=== PATIENT | male | born 2000 | race Caucasian/White ===

== ENCOUNTER 2024-09-15 21:03 | Emergency (ER) | payer OTHER, SELFPAY ==
[2024-09-15] VITALS (13 sets, daily range): BP systolic 113–142; BP diastolic 61–88; PULSE 92–107; TEMP 37.1–37.3; O2SAT 95–100; BMI 25.8
--- NOTE | 2024-09-15 21:18 | ED_ITS ---
HPI HPI - General Adult General Chief complaint: Nausea/Vomiting/Diarrhea Stated complaint: Nausea/Vomiting/Diarrhea Time Seen by Provider: 09/15/24 21:09 Source: patient Mode of arrival: ambulance Limitations: no limitations History of Present Illness HPI narrative: Patient states in the last 3 hours he has vomited 15 times and has had 10 loose stools. He had food from [employer] at noon today. He denies chills or fever. He complains of thirst. Related Data Previous Rx's ?Medication ?Instructions ?Recorded ondansetron 4 mg disintegrating 4 mg PO Q6H #10 tabs 09/15/24 tablet Allergies Allergy/AdvReac Type Severity Reaction Status Date / Time No Known Drug Allergies Allergy Verified 09/15/24 21:05 Opioid HPI Opioid Management Most Recent Opioid Data: No Data to Display Review of Systems ROS Status of ROS 10 or more systems reviewed and unremark able except as noted in h istory and below PFSH PFSH Social History Little interest or pleasure in doing things: not at all Feeling down, depressed, or hopeless: not at all Exam Narrative Exam Narrative: Ill-appearing. Eyes are sunken. Vitals are as charted. HEENT exam is normal to inspection. Neck is supple. Lung sounds are clear to auscultation bilaterally. Heart has regular rate and rhythm. Abdomen soft and he tolerates deep palpation in all quadrants without much discomfort. Bowel sounds are hypoactive and there is no distention or organomegaly. Extremities are warm and dry. There is no calf tenderness or pedal edema. Speech and mentation are clear and intact. There is no facial asymmetry. He moves all extremities actively Constitutional Vital Signs, click to edit/add: Last Vital Signs Temp 99.1 F 09/15/24 22:08 Pulse 97 H 09/15/24 23:31 Resp 19 09/15/24 23:31 BP 113/61 09/15/24 23:31 Pulse Ox 95 09/15/24 23:31 O2 Del Method Room Air 09/15/24 21:07 Course Vital Signs Vital signs: Vital Signs Temperature 98.7 F 09/15/24 21:07 Pulse Rate 107 H 09/15/24 21:07 Respiratory Rate 18 09/15/24 21:07 Blood Pressure 142/84 H 09/15/24 21:07 Pulse Oximetry 97 09/15/24 21:07 Oxygen Delivery Method Room Air 09/15/24 21:07 Temperature 99.1 F 09/15/24 22:08 Pulse Rate 97 H 09/15/24 23:31 Respiratory Rate 19 09/15/24 23:31 Blood Pressure 113/61 09/15/24 23:31 Pulse Oximetry 95 09/15/24 23:31 Oxygen Delivery Method Room Air 09/15/24 21:07 Medical Decision Making MDM Narrative Medical decision making narrative: Labs are fairly unremarkable. Patient is treated with 2 L of IV fluids as well as Benadryl 25 mg IV. He has had a few episodes of diarrhea but no vomiting. Upon discharge he is placed on Zofran and is advised supportive care. He is to return anytime for worsening symptoms. Symptoms are likely due to a viral gastroenteritis with no evidence of acute abdomen on exam or by lab work. Lab Data Labs: Lab Results 09/15/24 09/15/24 Range/Units 21:25 21:46 WBC 15.7 H (4.0-11.0) 10^3/uL RBC 5.24 (4.70-6.10) 10^6/uL Hgb 16.0 (14.0-18.0) g/dL Hct 45.6 (42.0-54.0) % MCV 87.0 (80.0-94.0) fL MCH 30.5 (25.9-34.0) pg MCHC 35.1 (29.9-35.2) g/dL RDW 11.2 (11.0-15.0) % Plt Count 225 (150-450) 10^3/uL MPV 11.1 (9.5-13.5) fL Seg Neuts % (Manual) 89.0 H (43.0-75.0) Band Neutrophils % 1.0 (0-5) % Lymphocytes % (Manual) 0.0 L (20.5-60.0) % Monocytes % (Manual) 5.0 (1.7-12.0) % Eosinophils % (Manual) 2.0 (0.9-7.0) % Basophils % (Manual) 0.0 L (0.2-2.0) % Neutrophils # (Manual) 13.97 H (1.4-6.5) 10^3/uL Band Neutrophils # 0.2 (0.0-0.3) 10^3/uL Lymphocytes # (Manual) 0.00 L (1.20-3.80) 10^3/uL Monocytes # (Manual) 0.78 (0.30-0.80) 10^3/uL Eosinophils # (Manual) 0.31 (0.00-0.70) 10^3/uL Basophils # (Manual) 0.00 (0.00-0.10) 10^3/uL Sodium 143 (136-145) mmol/L Potassium 3.3 L (3.5-5.1) mmol/L Chloride 104 (98-107) mmol/L Carbon Dioxide 27.9 (21.0-32.0) mmol/L Anion Gap 14.4 BUN 14.0 (7.0-18.0) mg/dL Creatinine 1.41 H (0.70-1.30) mg/dL Est GFR ( Amer) >60 (>=60 mL/min/1.73m^2) Est GFR (Non-Af Amer) >60 (>=60 mL/min/1.73m^2) BUN/Creatinine Ratio 9.9 Glucose 129 H (74-106) mg/dL Calcium 9.2 (8.5-10.1) mg/dL Total Bilirubin 0.9 (0.2-1.0) mg/dL AST 19 (15-37) U/L ALT 43 (16-63) U/L Alkaline Phosphatase 71 (46-116) U/L Total Protein 7.8 (6.4-8.2) g/dL Albumin 4.3 (3.4-5.0) g/dL Globulin 3.5 g/dL Albumin/Globulin Ratio 1.2 Lipase 23.0 (16.0-77.0) U/L Urine Color Yellow (YELLOW) Urine Clarity Clear (CLEAR) Urine pH 7.0 (5.0-9.0) Ur Specific [place] 1.025 (1.005-1.025) Urine Protein 30 A (NEG/TRACE) mg/dL Urine Glucose (UA) Negative (NEGATIVE) mg/dL Urine Ketones 15 A (NEGATIVE) mg/dL Urine Occult Blood Negative (NEGATIVE) Urine Nitrite Negative (NEGATIVE) Urine Bilirubin Negative (NEGATIVE) Urine Urobilinogen 0.2 (0.2-1.0) EU/dL Ur Leukocyte Esterase Negative (NEGATIVE) Urine RBC 0-2 (0-2) #/HPF Urine WBC 0-2 A (NONE SEEN) #/HPF Ur Squamous Epith Cells Rare (NONE/RARE) #/LPF Urine Crystals None seen (None Seen) #/HPF Urine Bacteria Small A (NONE SEEN) #/HPF Urine Casts None seen (NONE SEEN) #/LPF Urine Mucus Small A (NONE SEEN) Ur Culture Indicated? Yes Discharge Plan Discharge Chief Complaint: Nausea/Vomiting/Diarrhea Clinical Impression: Gastroenteritis Patient Disposition: Home, Self-Care Time of Disposition Decision: 23:35 Condition: Fair Mode of Transportation: Private Vehicle Prescriptions / Home Meds: New ondansetron 4 mg tablet,disintegrating 4 mg PO Q6H Qty: 10 0RF Print Language: Argentine Instructions: Acute Nausea and Vomiting (ED), Acute Diarrhea (ED) Additional Instructions: Liquid diet for 24 hours. If you have more than 5 stools in a day, you may take one Imodium tablet up to twice a day. Return for worsening symptoms. Referrals: Physician,Non-Staff, MD [Primary Care Provider] - 1 week
[2024-09-15] MEDS: 0.9 % SODIUM CHLORIDE 1,000 ML 1000 ML IV (21:31)
[2024-09-15] MEDS: DIPHENHYDRAMINE HCL 50 MG/ML VIAL 25 MG IV (21:32)
[2024-09-15 21:38] LABS: Hematocrit 45.6 % (42.0-54.0); Mean Corpuscular HGB Conc 35.1 g/dL (29.9-35.2); Mean Corpuscular Hemoglobin 30.5 pg (25.9-34.0); Mean Platelet Volume 11.1 fL (9.5-13.5); Platelet Count 225 10^3/uL (150-450); Red Blood Count 5.24 10^6/uL (4.70-6.10); Red Cell Distribution Width 11.2 % (11.0-15.0); White Blood Count 15.7 10^3/uL (4.0-11.0)
[2024-09-15 21:58] LABS: Alanine Aminotransferase 43 U/L (16-63); Albumin Globulin Ratio 1.2; Albumin Level 4.3 g/dL (3.4-5.0); Alkaline Phosphatase 71 U/L (46-116); Anion Gap 14.4; Aspartate Amino Transferase 19 U/L (15-37); BUN Creatinine Ratio 9.9; Bilirubin Total 0.9 mg/dL (0.2-1.0); Calcium 9.2 mg/dL (8.5-10.1); Carbon Dioxide 27.9 mmol/L (21.0-32.0); Chloride 104 mmol/L (98-107); Estimated GFR (African America >60 (>=60 mL/min/1.73m^2); Estimated GFR (Non-African Ame >60 (>=60 mL/min/1.73m^2); Globulin 3.5 g/dL; Glucose 129 mg/dL (74-106); Potassium 3.3 mmol/L (3.5-5.1); Sodium 143 mmol/L (136-145); Total Protein 7.8 g/dL (6.4-8.2)
--- NOTE | 2024-09-15 22:11 | PC.NURSE ---
i walked into this patient's room to find the patient lying on his right side on the bed, resting his eyes,, i introduced myself to this patient and i would be taking over his care. this patient voices no concerns and shows no signs of distress
[2024-09-15 22:12] LABS: Band Neutrophils Absolute 0.2 10^3/uL (0.0-0.3); Eosinophils Absolute Manual 0.31 10^3/uL (0.00-0.70); Monocytes Absolute Manual 0.78 10^3/uL (0.30-0.80); Segmented Neut Absolute Manual 13.97 10^3/uL (1.4-6.5)
[2024-09-15 22:16] LABS: Bilirubin Urine NEGATIVE (NEGATIVE); Blood Urine NEGATIVE (NEGATIVE); Clarity Urine CLEAR (CLEAR); Color Urine YELLOW (YELLOW); Glucose Urine UA NEGATIVE (NEGATIVE); Ketones Urine 15 mg/dL (NEGATIVE); Leukocyte Esterase Urine NEGATIVE (NEGATIVE); Nitrite Urine NEGATIVE (NEGATIVE); Protein Urine 30 mg/dL (NEG/TRACE); Specific Gravity Urine 1.025 (1.005-1.025); Urobilinogen Urine 0.2 EU/dL (0.2-1.0)
[2024-09-15 22:18] LABS: Urine Microscopic Indicated YES
[2024-09-15 22:23] LABS: Bacteria Urine SMALL #/HPF (NONE SEEN); Cast Seen? NONE SEEN #/LPF (NONE SEEN); Crystals Seen? None Seen #/HPF (None Seen); Mucus Urine SMALL (NONE SEEN); RBC Urine 0-2 #/HPF (0-2); Squamous Epithelial Cell Urine RARE #/LPF (NONE/RARE); Urine Culture Indicated YES; WBC Urine 0-2 #/HPF (NONE SEEN)
[2024-09-15] MEDS: LACTATED RINGER'S SOLUTION 1,000 ML 1000 ML IV (22:59)
--- NOTE | 2024-09-16 00:12 | PC.NURSE ---
i gave this patient verbal and paper discharge orders along with 1 e-scripts and this patient and his voices yes to understanding these. at time of discharge this patient nor his voices no concerns and show no signs of distress
== END 2024-09-16 00:14 | disposition home or self-care (01) ==
PROVIDERS: Emergency Provider Emergency Medicine
DX: K52.9 Noninfective gastroenteritis and colitis, unspecified (principal)
CPT/HCPCS: 36415; 80053; 81001; 83690; 85007; 85027; 87086; 96361; 96374; 99284; J1200

== ENCOUNTER 2025-06-09 10:44 | Emergency (ER) | payer OTHER, SELFPAY ==
[2025-06-09] VITALS (12 sets, daily range): BP systolic 131–152; BP diastolic 82–100; PULSE 48–69; TEMP 36.7; O2SAT 98–99; BMI 27.4
--- OUTSIDE RECORDS SUMMARY | 2025-06-09 10:53 | XMS_ITS | Clinical Summary ---
Author Organization [facility] Address [address] [place] [address] Phone Care Team Providers Care Inspector Shells Name Role Phone Unavailable Primary Care Provider Unavailabl e Allergies No known active allergies Social History Tobacco Use Types Packs/Day Years Used Date Smoking Tobacco: Never Assessed Sex and Gender Information Value Date Recorded Sex Assigned at Not on file Legal Sex Male 2:19 PM EDT Gender Identity Not on file Sexual Orientation Not on file Plan of Treatment Health Maintenance Due Date Last Done Comments HIV Screening 1998 Lipid Panel 1998 Yearly Adult Physical 1998 MMR Vaccines (1 of 1 - Stand mehreen series) 1999 HPV Vaccines (1 - Male 3-dos e series) 2013 Hepatitis C Screening 2016 Hepatitis B Vaccines (1 of 3 - 19+ 3-dose series) 2017 DTaP/Tdap/Td Vaccines (1 - Tdap) 2020 COVID-19 Vaccine (1 - 2023-2 5 season) 2025 Influenza Vaccine (#1) 2025 Zoster Vaccines (1 of 2) 2048 HIB Vaccines Aged Out No longer eligi ble based on patient's age to complete this topic Hepatitis A Vaccines Aged Out No long er eligible based on patient's age to complete this topic IPV Vaccines Aged Out No longer eligi ble based on patient's age to complete this topic Meningococcal Vaccine Aged Out No tyrone suraj eligible based on patient's age to complete this topic Pneumococcal Vaccine: Pediat rics and At-Risk Adult Patients Aged Out No longer kalia gible based on patient's age to complete this topic Rotavirus Vaccines Aged Out No longer eligible based on patient's age to complete this topic Insurance [facility] Member Subscriber Plan / Payer (Ef fective 2022-Present) Name:Ulysses Zhang Relation to Subscriber:Self Name:Ulysses Zhang Payer ID:Not on file Group ID:Not on file Type:Not on file Address: [id number] GABRIELLE [id number] [id number] [facility]
--- OUTSIDE RECORDS SUMMARY | 2025-06-09 10:53 | XMS_ITS | Encounter Summary ---
Author Organization [facility] Address [address] [place] [address] Care Team Providers Care Dealer Accounts Investigator Name Role Phone Star Antoine MD Primary Care Provider [phone] Pcp, No Primary Care Provider Unavailabl e Source Comments In the event this information is protected by the Federal Confidentiality of Alcohol and Drug AbusePatient Records regulations: The Federal rules restrict any use of the information to criminally investigate or prosecute any alcohol or drug abuse patient.[facility] Encounter Details Date Type Department Care Team (Late st Contact Info) Description 07/10/2008 Abstract Neurology [address] [id number] Mikal Tran MD [address] [address] [address] [place] [address] Social History Tobacco Use Types Packs/Day Years Used Date Smoking Tobacco: Passive Smo ke Exposure - Never Smoker Comments:mom and dad smoke Alcohol Use Standard Drinks/Week Comments No 0 (1 standard drink = 0.6 oz pur e alcohol) Sex and Gender Information Value Date Recorded Sex Assigned at Not on file Legal Sex Male 9:55 AM EST Gender Identity Not on file Sexual Orientation Not on file documented as of this encounter Plan of Treatment Not on file documented as of this encounter Visit Diagnoses Not on filedocumented in this encounter Care Teams Dealer Accounts Investigator Relationship Specialty Start Date End Date Star Antoine MD [address] [place] [address] PCP - General 10/19/04 03/07/18 Pcp, Frances PCP - General 03/08/18 09/26/18 documented as of this encounter
--- OUTSIDE RECORDS SUMMARY | 2025-06-09 10:53 | XMS_ITS | Encounter Summary ---
Author Organization [facility] Address [address] [place] [address] Phone Care Team Providers Care Micro Computer Specialist Name Role Phone Unavailable Primary Care Provider Unavailabl e Encounter Details Date Type Department Care Team (Late st Contact Info) Description 05/30/2023 Transcribe Orders [facility] [address] [place] [address] David Paz MD [address] [place], [place] [id number] Autonomic dysfunction (Primary Dx) Social History Tobacco Use Types Packs/Day Years Used Date Smoking Tobacco: Never Assessed Sex and Gender Information Value Date Recorded Sex Assigned at Not on file Legal Sex Male 2:19 PM EDT Gender Identity Not on file Sexual Orientation Not on file documented as of this encounter Plan of Treatment Not on file documented as of this encounter Visit Diagnoses Diagnosis Autonomic dysfunction- Primary documented in this encounter
--- OUTSIDE RECORDS SUMMARY | 2025-06-09 10:54 | XMS_ITS | CCD ---
Author Organization [facility] Care Team Providers Care Ivory Polisher Name Role Phone Rosana Westfall Attending Provider Kayley TRANSMISSION TESTER-CRosana Referring Provider [phone] Rosana Zaldivar NP Attending Unavailable Rosana Zaldivar NP Referring Unavailable Sourav Batista Primary Care Unavailable Emilie Hanley APRN Attending Provider NON STAFF Primary Care Provider Unavailabl e Medications Current Medications Medication Drug Class(es) Dates Sig (Normalized) Sig (Original) albuterol 0.83 mg/ml inhalation solution (1 source) beta2-Adrenergic Agonist Start: 03-08-2025 take 2.5 mg by inhalation every four to six hours as needed for wheezing Albuterol Sulfate 2.5 mg /3 mL (0.083 %) solution for nebulization Active 2.5 MG INHALATION EVERY 4-6 HOURS as needed for shortness of breath or wheezing 75 March 08, 2025 12:00am Complies with drug therapy benzonatate 100 mg oral capsule (1 source) Non-narcotic Antitussive Start: 03-08-2025 Benzonatate 100 mg capsule Active 100 MG PO 2-3 TIMES PER DAY as needed for cough 14 7 March 08, 2025 12:00am Complies with drug therapy Inhalational Spacing Device (Aerochamber Mv) spacer (1 source) Start: 03-08-2025 Inhalational Spacing Device (Aerochamber Mv) spacer Active 0 .ROUTE .MEDSUPPLY 1 March 08, 2025 12:00am As directed lisinopril 5 mg oral tablet (1 source) Angiotensin Converting Enzyme Inhibitor Start: 03-08-2025 take 1 tablet by mouth once daily Lisinopril 5 mg tablet Active 5 MG PO Daily March 08, 2025 12:00am Complies with drug therapy Problems Problem Classification Problem Date Documented Da te Episodic/Chronic Essential hypertension (1 source) Hypertensive disorder; Translations: [Essential (primary) hypertension] 03-08-2025 Chronic Other lower respiratory disease (1 source) Cough; Translations: [Cough] 03-08-2025 Episodic Results Test Name Value Interpretation Reference Range Facility [facility] 12-12-2022 [facility] Telephone (AKED) MARIAHULYSSES Sanchez ([id number]) 2000 M Date Time Provider Department 12/12/22 ATIYA VALERIO During your visit today, we recorded the following information about you: Atiya Valerio RPh 12/12/2022 10:33 AM Signed PHARMACY EMERGENCY DEPARTMENT CULTURE CALLBACK Patient Name: Ulysses Zhang Date of Callback: 12/12/2022 Pharmacist contacted this patient per emergency department culture callback guidelines. Patient was confirmed with 2 ID's N/A ALLERGIES No Known Allergies Type of Culture(s): Stool Culture Results: Positive: sapovirus Change in treatment needed:No Action Taken: Patient educated on diagnosis and counseled on treatment plan. Clostridium difficile education provided? N/A Lab Results: n/a Home Medication List: Prior to Admission medications as of 09/29/11 0910 Medication Sig Last Dose Taking dexmethylphenidate (FOCALIN XR) 30 mg ORAL MP50 Take 1 capsule by mouth once daily. Dexmethylphenidate HCl 10 mg ORAL tablet Take 1 tablet by mouth once daily. quetiapine (SEROQUEL) 100 mg ORAL tablet Take 100 mg by mouth once daily. FLINTSTONES MULTIVITAMIN ORAL CHEW 1 po daily Patient's Preferred Pharmacy: [facility] [address] [place] [address] [facility] [phone] Please page/call with any issues or questions. Electronic signature: Atiya Valerio RPh December 12, 2022 10:31 AM Pager/Extension: [phone] Allergies As of Date: 12/12/2022 (No Known Allergies) Date Reviewed: 12/11/2022 Reviewed by: Vivian Navarro RN - Fully Assessed Reason for Visit: Results [95] Prescriptions as of 12/12/2022 - dexmethylphenidate (FOCALIN XR) 30 mg ORAL MP50 Take 1 capsule by mouth once daily. - Dexmethylphenidate HCl 10 mg ORAL tablet Take 1 tablet by mouth once daily. - quetiapine (SEROQUEL) 100 mg ORAL tablet Take 100 mg by mouth once daily. 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 Encounter Status:Closed by ATIYA VALERIO on 12/12/22 Normal [facility] CBC W Auto Differential pane l (Bld)on 12-11-2022 Basophils (Bld) [#/Vol] 0.04 10*3/uL Normal <0.11 [facility] Comment on above: Order Comment: Speci men Type: BLOOD SPECIMEN Ordering Facility: [facility] Address: [address] [place] [address] Performed By: #### 5 7021-8 #### [facility] CLIA [id number] [address] [place] [address] [place] Basophils/100 WBC (Bld) 0.6 % Normal [facility] Comment on above: Order Comment: Speci men Type: BLOOD SPECIMEN Ordering Facility: [facility] Address: [address] [address] Performed By: #### 5 7021-8 #### [facility] CLIA [id number] [address] [place] Differential cell count method Nom (Bld) Auto Normal [facility] Comment on above: Order Comment: Speci men Type: BLOOD SPECIMEN Ordering Facility: [facility] Address: [address] [address] Performed By: #### 5 7021-8 #### [facility] CLIA [id number] [address] OF [facility] Eosinophils (Bld) [#/Vol] 0.15 10*3/uL Normal <0.46 [facility] Comment on above: Order Comment: Speci men Type: BLOOD SPECIMEN Ordering Facility: [facility] Address: [address] [address] Performed By: #### 5 7021-8 #### [facility] CLIA [id number] [address] OF [place] Eosinophils/100 WBC (Bld) 2.3 % Normal [facility] Comment on above: Order Comment: Speci men Type: BLOOD SPECIMEN Ordering Facility: [facility] Address: [address] [place] [address] Performed By: #### 5 7021-8 #### [facility] CLIA [id number] [address] Erythrocyte distribution width (RBC) [Ratio] 11.6 % Normal 11.5-15.0 [facility] Comment on above: Order Comment: Speci men Type: BLOOD SPECIMEN Ordering Facility: [facility] Address: [address] [place] [address] Performed By: #### 5 7021-8 #### [facility] CLIA [id number] [address] Hematocrit (Bld) [Volume fraction] 41.5 % Normal 39.0-51.0 [facility] Comment on above: Order Comment: Speci men Type: BLOOD SPECIMEN Ordering Facility: [facility] Address: [address] [address] Performed By: #### 5 7021-8 #### [facility] CLIA [id number] [address] OF [place] Hemoglobin (Bld) [Mass/Vol] 14.3 g/dL Normal 13.0-17.0 [facility] Comment on above: Order Comment: Speci men Type: BLOOD SPECIMEN Ordering Facility: [facility] Address: [address] [address] Performed By: #### 5 7021-8 #### [facility] CLIA [id number] [address] Immature granulocytes (Bld) [#/Vol] 0.05 10*3/uL Normal <0.10 [facility] Comment on above: Order Comment: Speci men Type: BLOOD SPECIMEN Ordering Facility: [facility] Address: [address] [place] [address] Performed By: #### 5 7021-8 #### [facility] CLIA [id number] [address] Immature granulocytes/100 WBC (Bld) 0.8 % Normal [facility] Comment on above: Order Comment: Speci men Type: BLOOD SPECIMEN Ordering Facility: [facility] Address: [address] [place] [address] Performed By: #### 5 7021-8 #### [facility] CLIA [id number] [address] Lymphocytes (Bld) [#/Vol] 1.88 10*3/uL Normal 1.00-4.00 [facility] Comment on above: Order Comment: Speci men Type: BLOOD SPECIMEN Ordering Facility: [facility] Address: [address] [place] [address] Performed By: #### 5 7021-8 #### [facility] CLIA [id number] [address] Lymphocytes/100 WBC (Bld) 28.9 % Normal [facility] Comment on above: Order Comment: Speci men Type: BLOOD SPECIMEN Ordering Facility: [facility] Address: [address] [place] [address] Performed By: #### 5 7021-8 #### [facility] CLIA [id number] [address] OF [place] MCH (RBC) [Entitic mass] 30.8 pg Normal 26.0-34.0 [facility] Comment on above: Order Comment: Speci men Type: BLOOD SPECIMEN Ordering Facility: [facility] Address: [address] [address] Performed By: #### 5 7021-8 #### [facility] CLIA [id number] [address] MCHC (RBC) [Mass/Vol] 34.5 g/dL Normal 30.5-36.0 [facility] Comment on above: Order Comment: Speci men Type: BLOOD SPECIMEN Ordering Facility: [facility] Address: [address] [place] [address] Performed By: #### 5 7021-8 #### [facility] CLIA [id number] [address] MCV (RBC) [Entitic vol] 89.2 fL Normal 80.0-100.0 [facility] Comment on above: Order Comment: Speci men Type: BLOOD SPECIMEN Ordering Facility: [facility] Address: [address] [place] [address] Performed By: #### 5 7021-8 #### [facility] CLIA [id number] [address] Monocytes (Bld) [#/Vol] 0.46 10*3/uL Normal <0.87 [facility] Comment on above: Order Comment: Speci men Type: BLOOD SPECIMEN Ordering Facility: [facility] Address: [address] [address] Performed By: #### 5 7021-8 #### [facility] CLIA [id number] [address] Monocytes/100 WBC (Bld) 7.1 % Normal [facility] Comment on above: Order Comment: Speci men Type: BLOOD SPECIMEN Ordering Facility: [facility] Address: [address] [place] [address] Performed By: #### 5 7021-8 #### [facility] CLIA [id number] [address] OF [place] Neutrophils (Bld) [#/Vol] 3.92 10*3/uL Normal 1.45-7.50 [facility] Comment on above: Order Comment: Speci men Type: BLOOD SPECIMEN Ordering Facility: [facility] Address: [address] [place] [address] Performed By: #### 5 7021-8 #### [facility] CLIA [id number] [address] Neutrophils/100 WBC (Bld) 60.3 % Normal [facility] Comment on above: Order Comment: Speci men Type: BLOOD SPECIMEN Ordering Facility: [facility] Address: [address] [address] Performed By: #### 5 7021-8 #### [facility] CLIA [id number] [address] [place] Nucleated RBC (Bld) [#/Vol] 10*3/uL Normal <0.01 [facility] Comment on above: Order Comment: Speci men Type: BLOOD SPECIMEN Ordering Facility: [facility] Address: [address] [address] Performed By: #### 5 7021-8 #### [facility] CLIA [id number] [address] Nucleated RBC/100 WBC (Bld) [Ratio] 0.0 /100 WBC Normal [facility] Comment on above: Order Comment: Speci men Type: BLOOD SPECIMEN Ordering Facility: [facility] Address: [address] [place] [address] Performed By: #### 5 7021-8 #### [facility] CLIA [id number] [address] OF [place] Platelet mean volume (Bld) [Entitic vol] 11.1 fL Normal 9.0-12.7 [facility] Comment on above: Order Comment: Speci men Type: BLOOD SPECIMEN Ordering Facility: [facility] Address: [address] [address] Performed By: #### 5 7021-8 #### [facility] CLIA [id number] [address] OF [facility] Platelets (Bld) [#/Vol] 208 10*3/uL Normal 150-400 [facility] Comment on above: Order Comment: Speci men Type: BLOOD SPECIMEN Ordering Facility: [facility] Address: [address] [place] [address] Performed By: #### 5 7021-8 #### [facility] CLIA [id number] [address] OF [facility] RBC (Bld) [#/Vol] 4.65 10*6/uL Normal 4.20-6.00 [facility] Comment on above: Order Comment: Speci men Type: BLOOD SPECIMEN Ordering Facility: [facility] Address: [address] [place] [address] Performed By: #### 5 7021-8 #### [facility] CLIA [id number] [address] WBC (Bld) [#/Vol] 6.50 10*3/uL Normal 3.70-11.00 [facility] Comment on above: Order Comment: Speci men Type: BLOOD SPECIMEN Ordering Facility: [facility] Address: [address] [place] [address] Performed By: #### 5 7021-8 #### [facility] CLIA [id number] [address] Comprehensive metabolic 2000 panelon 12-11-2022 Albumin [Mass/Vol] 4.3 g/dL Normal 3.9-4.9 [facility] Comment on above: Order Comment: Speci men Type: BLOOD SPECIMEN Ordering Facility: [facility] Address: [address] [place] [address] Performed By: #### 2 4323-8, 3040-3 #### [facility] CLIA [id number] [address] ALP [Catalytic activity/Vol] 70 U/L Normal 38-113 [facility] Comment on above: Order Comment: Speci men Type: BLOOD SPECIMEN Ordering Facility: [facility] Address: [address] [address] Performed By: #### 2 4323-8, 3040-3 #### [facility] CLIA [id number] [address] ALT With P-5'-P [Catalytic activity/Vol] 26 U/L Normal 10-54 [facility] Comment on above: Order Comment: Speci men Type: BLOOD SPECIMEN Ordering Facility: [facility] Address: [address] [address] Performed By: #### 2 4323-8, 0-3 #### [facility] CLIA [id number] [address] Anion gap [Moles/Vol] 11 mmol/L Normal 9-18 [facility] Comment on above: Order Comment: Speci men Type: BLOOD SPECIMEN Ordering Facility: [facility] Address: [address] [address] Performed By: #### 2 4323-8, 0-3 #### [facility] CLIA [id number] [address] AST With P-5'-P [Catalytic activity/Vol] 18 U/L Normal 14-40 [facility] Comment on above: Order Comment: Speci men Type: BLOOD SPECIMEN Ordering Facility: [facility] Address: [address] [address] Performed By: #### 2 4323-8, 0-3 #### [facility] CLIA [id number] [address] Bilirubin [Mass/Vol] 0.3 mg/dL Normal 0.2-1.3 [facility] Comment on above: Order Comment: Speci men Type: BLOOD SPECIMEN Ordering Facility: [facility] Address: [address] [address] Performed By: #### 2 4323-8, 3040-3 #### [facility] CLIA [id number] [address] Calcium [Mass/Vol] 8.6 mg/dL Normal 8.5-10.2 [facility] Comment on above: Order Comment: Speci men Type: BLOOD SPECIMEN Ordering Facility: [facility] Address: [address] [place] [address] Performed By: #### 2 4323-8, 3040-3 #### [facility] CLIA [id number] [address] STATES OF [facility] Chloride [Moles/Vol] 108 mmol/L High 97-105 [facility] Comment on above: Order Comment: Speci men Type: BLOOD SPECIMEN Ordering Facility: [facility] Address: [address] [place] [address] Performed By: #### 2 4323-8, 0-3 #### [facility] CLIA [id number] [address] CO2 [Moles/Vol] 23 mmol/L Normal 22-30 [facility] Comment on above: Order Comment: Speci men Type: BLOOD SPECIMEN Ordering Facility: [facility] Address: [address] [place] [address] Performed By: #### 2 4323-8, 0-3 #### [facility] CLIA [id number] [address] OF [facility] Creatinine [Mass/Vol] 0.88 mg/dL Normal 0.73-1.22 [facility] Comment on above: Order Comment: Speci men Type: BLOOD SPECIMEN Ordering Facility: [facility] Address: [address] [place] [address] Performed By: #### 2 4323-8, 3040-3 #### [facility] CLIA [id number] [address] ESTIMATED GLOMERULAR FILTRATION RATE 123 mL/min/1.73m??? Normal >=60 [facility] Comment on above: Order Comment: Speci men Type: BLOOD SPECIMEN Ordering Facility: [facility] Address: [address] [place] [address] Result Comment: Jenn mated Glomerular Filtration Rate (eGFR) is calculated using the 2020 CKD-EPI creatinine equation. This equation utilizes serum creatinine, sex, and age as parameters. The creatinine assay has traceable calibration to isotope dilution-mass spectrometry. Refer to KDIGO guidelines for clinical interpretation. In patients with unstable renal function, e.g. those with acute kidney injury, the eGFR may not accurately reflect actual GFR. Performed By: #### 2 4323-8, 3039-3 #### [facility] CLIA [id number] [address] [place] [address] [place] Glucose [Mass/Vol] 89 mg/dL Normal 74-99 [facility] Comment on above: Order Comment: Gerardo stinson Type: BLOOD SPECIMEN Ordering Facility: [facility] Address: [address] [place] [address] Result Comment: The [place] Diabetes Association (ADA) provides guidance for cutoff values for fasting glucose and random glucose. The ADA defines fasting as no caloric intake for at least 8 hours. Fasting plasma glucose results between 100 to 125 mg/dL indicate increased risk for diabetes (prediabetes). Fasting plasma glucose results greater than or equal to 126 mg/dL meet the criteria for diagnosis of diabetes. In the absence of unequivocal hyperglycemia, results should be confirmed by repeat testing. In a patient with classic symptoms of hyperglycemia or hyperglycemic crisis, random plasma glucose results greater than or equal to 200 mg/dL meet the criteria for diagnosis of diabetes. Reference: Standards of Medical Care in Diabetes 2016, [place] Diabetes Association. Diabetes Care. 2016.39(Suppl 1). Performed By: #### 2 4323-8, 3039-3 #### [facility] CLIA [id number] 1 [place] [address] [place] Potassium [Moles/Vol] 4.0 mmol/L Normal 3.7-5.1 [facility] Comment on above: Order Comment: Gerardo stinson Type: BLOOD SPECIMEN Ordering Facility: [facility] Address: [address] [id number] Performed By: #### 2 4323-8, 0-3 #### [facility] CLIA [id number] [address] [place] [address] Protein [Mass/Vol] 6.7 g/dL Normal 6.3-8.0 [facility] Comment on above: Order Comment: Speci men Type: BLOOD SPECIMEN Ordering Facility: [facility] Address: [address] [place] [address] Performed By: #### 2 4323-8, 3040-3 #### [facility] CLIA [id number] [address] Sodium [Moles/Vol] 142 mmol/L Normal 136-144 [facility] Comment on above: Order Comment: Speci men Type: BLOOD SPECIMEN Ordering Facility: [facility] Address: [address] [place] [address] Performed By: #### 2 4323-8, 3040-3 #### [facility] CLIA [id number] [address] Urea nitrogen [Mass/Vol] 14 mg/dL Normal 9-24 [facility] Comment on above: Order Comment: Speci men Type: BLOOD SPECIMEN Ordering Facility: [facility] Address: [address] [place] [address] Performed By: #### 2 4323-8, 3040-3 #### [facility] CLIA [id number] [address] ED NOTEon 12-11-2022 ED NOTE HNO ID: [id number] Author: Isabela Mitchell RN Service: Emergency Medicine Author Type: Registered Nurse Type: ED Notes Filed: 12/11/2022 6:12 PM Note Text: Upon DC, IV removed, pt given DC paperwork denies questions, understands to follow up with PCP/Specialist for further evaluation after leaving ER; pain controlled/stable upon leaving ED, independent with steady gait; pt set up their own ride home Normal [facility] ED PROV NOTEon 12-11-2022 ED PROV NOTE HNO ID: [id number] Author: Kwame Vang MD Service: Emergency Medicine Author Type: Physician Type: ED Provider Notes Filed: 12/11/2022 4:38 PM Note Text: Attending Note I evaluated the patient and personally participated in the magallon components. I agree with the resident's findings and plan as documented and have discussed the case and management of the patient's care with the resident. I supervised the magallon portion(s) of procedures performed on this patient by the resident physician. Physical Exam Item(s): Lower abdomen very minimally tender on palpation there is no specific point tenderness there is no rigidity rebound or guarding, patient is well-appearing mucous membranes are moist This is a 22 year old male presenting with Abdominal Pain (Patient arrives to ED c/o lower abdominal pain x1 week. Patient states that he was sent by the DC to have imaging done of his abdomen. Patient reports associated nausea, vomiting, and diarrhea. Patient denies fever or chills. ) Patient has had nausea vomiting and diarrhea but predominantly diarrhea and some lower abdominal cramping for the last week. Initially improved on Sunday and then worsened again. It is nonbloody. No abnormal ingestion no fevers no history of IBS or IBD no sick contacts no foreign travel. Patient was sent in for abdominal imaging and labs. I do not feel the patient needs abdominal imaging at this time. He has no clinical signs of acute abdomen no risk factors for diverticulitis or clinical concerns for colitis. Recommend obtaining labs hydrating the patient and he may need outpatient stool studies or colonoscopy if symptoms persist. Would consider imaging of the patient's symptoms worsen. KWAME VANG 12/11/22 1638 Normal [facility] ED PROV NOTE HNO ID: [id number] Author: Kwame Vang MD Service: Emergency Medicine Author Type: Physician Type: ED Provider Notes Filed: 12/13/2022 8:38 AM Note Text: ED Provider Note Patient Name: Ulysses Zhang : 2000 SERVICE DATE: 12/11/22 History Patient presents with: Abdominal Pain: Patient arrives to ED c/o lower abdominal pain x1 week. Patient states that he was sent by the DC to have imaging done of his abdomen. Patient reports associated nausea, vomiting, and diarrhea. Patient denies fever or chills. The patient is a 22-year-old male with past medical history as below presenting for diarrhea and abdominal pain. States been ongoing for the last week or so. States the pain is in bilateral lower parts of his abdomen. He endorses up to 40 bowel movements a day although that only happen 1 day. Endorses multiple watery bowel movements on the other days. Endorses a couple episodes of vomiting but only at night. PAST MEDICAL HISTORY Diagnosis Date ADHD (attention deficit hyperactivity disorder) OCD (obsessive compulsive disorder) PAST SURGICAL HISTORY Procedure Laterality Date CIRCUMCISION,CLAMP,NEWB ORN Circumcision, INCISION EARDRUM,ASPIR,GEN ANESTH Bilateral myringotomy tubes FAMILY HISTORY Problem Relation Age of Onset Heart Maternal Grandmother triple bypass, 3 heart attacks Hypertension Father Social History Tobacco Use Smoking status: Never Smokeless tobacco: Never Tobacco comments: mom and dad smoke Substance and Sexual Activity Alcohol use: No Drug use: No Sexual activity: Never ALLERGIES No Known Allergies Review of Systems Constitutional: Negative for fatigue and fever. HENT: Negative for congestion, ear discharge, rhinorrhea and trouble swallowing. Eyes: Negative for photophobia and redness. Respiratory: Negative for cough, shortness of breath and wheezing. Cardiovascular: Negative for chest pain, palpitations and leg swelling. Gastrointestinal: Positive for abdominal pain, diarrhea, nausea and vomiting. Negative for constipation. Genitourinary: Negative for dysuria and flank pain. Musculoskeletal: Negative for back pain and myalgias. Skin: Negative for color change, rash and wound. Neurological: Negative for seizures, syncope, light-headedness and headaches. Psychiatric/Behavioral: Negative for behavioral problems, confusion and decreased concentration. The patient is not nervous/anxious and is not hyperactive. Physical Exam Vitals [12/11/22 1517] BP Pulse Temp Temp src Resp SpO2 Weight Height 131/57 55 36.3 ?C (97.3 ?F) Oral 18 97 % 65.8 kg (145 lb) 1.727 m (5' 8 ) Physical Exam Vitals and nursing note reviewed. Constitutional: Appearance: Normal appearance. HENT: Head: Normocephalic and atraumatic. Right Ear: External ear normal. Left Ear: External ear normal. Nose: Nose normal. Mouth/Throat: Mouth: Mucous membranes are moist. Pharynx: Oropharynx is clear. Eyes: Extraocular Movements: Extraocular movements intact. Conjunctiva/sclera: Conjunctivae normal. Pupils: Pupils are equal, round, and reactive to light. Cardiovascular: Rate and Rhythm: Normal rate and regular rhythm. Pulses: Normal pulses. Heart sounds: Normal heart sounds. No murmur heard. No gallop. Pulmonary: Effort: Pulmonary effort is normal. No respiratory distress. Breath sounds: Normal breath sounds. No wheezing, rhonchi or rales. Abdominal: General: Abdomen is flat. Palpations: Abdomen is soft. Tenderness: There is abdominal tenderness in the right lower quadrant and left lower quadrant. Musculoskeletal: General: No swelling or tenderness. Normal range of motion. Cervical back: Normal range of motion and neck supple. No muscular tenderness. Skin: General: Skin is warm and dry. Capillary Refill: Capillary refill takes less than 2 seconds. Coloration: Skin is not pale. Findings: No rash. Neurological: General: No focal deficit present. Mental Status: He is alert and oriented to person, place, and time. Mental status is at baseline. Motor: No weakness. Psychiatric: Mood and Affect: Mood normal. Behavior: Behavior normal. Thought Content: Thought content normal. Judgment: Judgment normal. Diagnostic Testing ED Labs Ordered and Reviewed - No data to display Procedures ED Course / Clinical Impression Clinical Impressions as of 12/11/228 Diarrhea of presumed infectious origin MDM / Disposition / Plan 22 year old male presents with diarrhea. On initial assessment patient was found non-toxic, no acute distress, vitals hemodynamically stable and afebrile. Initial concern for viral illness versus inflammatory bowel disease. Low concern for surgical pathology given the patient's largely unremarkable abdominal exam and hemodynamic stability as well as the duration of the patient's symptoms. Basic lab work including electrolytes will be obtained. Patient (more content not included)... Normal [facility] GI pathogens Pnl Stl Culton 12-11-2022 Gastrointestinal pathogens panel Cx (Stl) CULTURE, STOOL: No Salmonella, Shigella, Campylobacter or E. coli O157:H7 isolated Normal [facility] Comment on above: Performed By: #### 8 2305-4 #### [facility] CLIA [id number] [address] [place] [address] [place] Gastrointestinal pathogens p ian JAZMINE+probe (Stl)on 12-11-2022 ADENOVIRUS F 40/41 Not detected Normal Not Detected [facility] Comment on above: Order Comment: Speci men Type: STOOL SPECIMEN Ordering Facility: [facility] Address: [address] [place], [place] [address] Performed By: #### 7 9381-0 #### [facility] CLIA [id number] [address] OF [place] ASTROVIRUS Not detected Normal Not Detected [facility] Comment on above: Order Comment: Speci men Type: STOOL SPECIMEN Ordering Facility: [facility] Address: [address] [address] Performed By: #### 7 9381-0 #### [facility] CLIA [id number] [address] OF [place] C. cayetanensis DNA JAZMINE+probe Ql (Unsp spec) Not detected Normal Not Detected [facility] Comment on above: Order Comment: Speci men Type: STOOL SPECIMEN Ordering Facility: [facility] Address: [address] [address] Performed By: #### 7 9381-0 #### [facility] CLIA [id number] [address] [place] Campylobacter sp DNA.diarrheagenic JAZMINE+probe Ql (Stl) Not detected Normal Not Detected [facility] Comment on above: Order Comment: Speci men Type: STOOL SPECIMEN Ordering Facility: [facility] Address: [address] [address] Performed By: #### 7 9381-0 #### [facility] CLIA [id number] [address] OF [place] Cryptosporidium sp DNA JAZMINE+probe Ql (Unsp spec) Not detected Normal Not detected [facility] Comment on above: Order Comment: Speci men Type: STOOL SPECIMEN Ordering Facility: [facility] Address: [address] [address] Performed By: #### 7 9381-0 #### [facility] CLIA [id number] [address] [place] E. COLI (EAEC) Not detected Normal Not Detected [facility] Comment on above: Order Comment: Speci men Type: STOOL SPECIMEN Ordering Facility: [facility] Address: [address] [address] Performed By: #### 7 9381-0 #### [facility] CLIA [id number] [address] E. COLI (EPEC) Not detected Normal Not Detected [facility] Comment on above: Order Comment: Speci men Type: STOOL SPECIMEN Ordering Facility: [facility] Address: [address] [address] Performed By: #### 7 9381-0 #### [facility] CLIA [id number] [address] E. COLI (ETEC) Not detected Normal Not Detected [facility] Comment on above: Order Comment: Speci men Type: STOOL SPECIMEN Ordering Facility: [facility] Address: [address] [place] [address] Performed By: #### 7 9381-0 #### [facility] CLIA [id number] [address] E. COLI (STEC) Not detected Normal Not Detected [facility] Comment on above: Order Comment: Speci men Type: STOOL SPECIMEN Ordering Facility: [facility] Address: [address] [place] [address] Performed By: #### 7 9381-0 #### [facility] CLIA [id number] [address] E. coli O157:H7 DNA JAZMINE+probe Ql (Unsp spec) Not Applicable Normal Not Detected [facility] Comment on above: Order Comment: Speci men Type: STOOL SPECIMEN Ordering Facility: [facility] Address: [address] [address] Performed By: #### 7 9381-0 #### [facility] CLIA [id number] [address] E. histolytica DNA JAZMINE+probe Ql (Unsp spec) Not detected Normal Not Detected [facility] Comment on above: Order Comment: Speci men Type: STOOL SPECIMEN Ordering Facility: [facility] Address: [address] [address] Performed By: #### 7 9381-0 #### [facility] CLIA [id number] [address] [place] G. lamblia DNA JAZMINE+probe Ql (Unsp spec) Not detected Normal Not Detected [facility] Comment on above: Order Comment: Speci men Type: STOOL SPECIMEN Ordering Facility: [facility] Address: [address] [place] [address] Performed By: #### 7 9381-0 #### [facility] CLIA [id number] [address] [place] NOROVIRUS GI/GII Not detected Normal Not Detected [facility] Comment on above: Order Comment: Speci men Type: STOOL SPECIMEN Ordering Facility: [facility] Address: [address] [place] [address] Performed By: #### 7 9381-0 #### [facility] CLIA [id number] [address] OF [facility] PLESIOMONAS SHIGELLOIDES Not detected Normal Not Detected [facility] Comment on above: Order Comment: Speci men Type: STOOL SPECIMEN Ordering Facility: [facility] Address: [address] [place] [address] Performed By: #### 7 9381-0 #### [facility] CLIA [id number] [address] OF [facility] ROTOVIRUS A Not detected Normal Not Detected [facility] Comment on above: Order Comment: Speci men Type: STOOL SPECIMEN Ordering Facility: [facility] Address: [address] [address] Performed By: #### 7 9381-0 #### [facility] CLIA [id number] [address] [place] Salmonella sp DNA JAZMINE+probe Ql (Unsp spec) Not detected Normal Not Detected [facility] Comment on above: Order Comment: Speci men Type: STOOL SPECIMEN Ordering Facility: [facility] Address: [address] [address] Performed By: #### 7 9381-0 #### [facility] CLIA [id number] [address] SAPOVIRUS I,II,IV,V Detected Abnormal Not Detected [facility] Comment on above: Order Comment: Speci men Type: STOOL SPECIMEN Ordering Facility: [facility] Address: [address] [place] [address] Performed By: #### 7 9381-0 #### [facility] CLIA [id number] [address] [place] Shigella species+EIEC invasion plasmid antigen H ipaH gene JAZMINE+probe Ql (Stl) Not detected Normal Not Detected [facility] Comment on above: Order Comment: Speci men Type: STOOL SPECIMEN Ordering Facility: [facility] Address: [address] [place] [address] Performed By: #### 7 9381-0 #### [facility] CLIA [id number] [address] V. cholerae DNA JAZMINE+probe Ql (Unsp spec) Not detected Normal Not Detected [facility] Comment on above: Order Comment: Speci men Type: STOOL SPECIMEN Ordering Facility: [facility] Address: [address] [place] [address] Performed By: #### 7 9381-0 #### [facility] CLIA [id number] [address] Vibrio sp DNA JAZMINE+probe Nom (Unsp spec) Not detected Normal Not Detected [facility] Comment on above: Order Comment: Speci men Type: STOOL SPECIMEN Ordering Facility: [facility] Address: [address] [place] [address] Performed By: #### 7 9381-0 #### [facility] CLIA [id number] [address] [place] Yersinia sp DNA JAZMINE+probe Nom (Unsp spec) Not detected Normal Not Detected [facility] Comment on above: Order Comment: Speci men Type: STOOL SPECIMEN Ordering Facility: [facility] Address: [facility] [place] [address] Performed By: #### 7 9381-0 #### [facility] CLIA [id number] [address] OF [facility] Lipase SerPl-cCncon 12-12-19 23 Lipase [Catalytic activity/Vol] 42 U/L Normal 16-61 [facility] Comment on above: Order Comment: Speci men Type: BLOOD SPECIMEN Ordering Facility: [facility] Address: [address] [address] Performed By: #### 2 4323-8, 3040-3 #### [facility] CLIA [id number] [address] O+P Spec Microon 12-11-2022 Ova and parasites identified LM Nom (Unsp spec) OVA AND PARASITE EXAM: No Parasites Seen Normal [facility] Comment on above: Performed By: #### 6 73-4 #### [facility] CLIA [id number] [address] [facility] [id number] Urinalysis complete panel (U )on 12-11-2022 Bilirubin Ql (U) Negative Normal Negative [facility] Comment on above: Order Comment: Speci men Type: URINE SPECIMEN Ordering Facility: [facility] Address: [address] [address] Performed By: #### 2 4356-8 #### [facility] CLIA [id number] [address] Clarity (Unsp spec) Clear Normal Clear [facility] Comment on above: Order Comment: Speci men Type: URINE SPECIMEN Ordering Facility: [facility] Address: [address] [address] Performed By: #### 2 4356-8 #### [facility] CLIA [id number] [address] Color (U) Yellow Normal yellow [facility] Comment on above: Order Comment: Speci men Type: URINE SPECIMEN Ordering Facility: [facility] Address: [address] [place] [address] Performed By: #### 2 4356-8 #### [facility] CLIA [id number] [address] Glucose Test strip (U) [Mass/Vol] Negative Normal Trace, Negative [facility] Comment on above: Order Comment: Speci men Type: URINE SPECIMEN Ordering Facility: [facility] Address: [address] [place] [address] Performed By: #### 2 4356-8 #### [facility] CLIA [id number] [address] Hemoglobin Ql (U) Negative Normal Negative, Trace [facility] Comment on above: Order Comment: Speci men Type: URINE SPECIMEN Ordering Facility: [facility] Address: [address] [place] [address] Performed By: #### 2 4356-8 #### [facility] CLIA [id number] [address] Hyaline casts (Urine sed) [#/Area] 1-3 /LPF Abnormal 0 /LPF [facility] Comment on above: Order Comment: Speci men Type: URINE SPECIMEN Ordering Facility: [facility] Address: [address] [place] [address] Performed By: #### 2 4356-8 #### [facility] CLIA [id number] [address] OF [facility] Ketones Ql (U) Trace Normal Negative, Trace [facility] Comment on above: Order Comment: Speci men Type: URINE SPECIMEN Ordering Facility: [facility] Address: [address] [place] [address] Performed By: #### 2 4356-8 #### [facility] CLIA [id number] [address] OF [place] Leukocyte esterase Test strip Ql (U) Negative Normal Negative, 25 Alejandra/uL [facility] Comment on above: Order Comment: Speci men Type: URINE SPECIMEN Ordering Facility: [facility] Address: [address] [place] [address] Performed By: #### 2 4356-8 #### [facility] CLIA [id number] [address] [place] Nitrite Ql (U) Negative Normal Negative [facility] Comment on above: Order Comment: Speci men Type: URINE SPECIMEN Ordering Facility: [facility] Address: [address] [place] [address] Performed By: #### 2 4356-8 #### [facility] CLIA [id number] [address] [place] pH (U) 5.5 [pH] Normal 5.0-8.0 [facility] Comment on above: Order Comment: Speci men Type: URINE SPECIMEN Ordering Facility: [facility] Address: [address] [place] [address] Performed By: #### 2 4356-8 #### [facility] CLIA [id number] [address] [place] [address] [place] Protein (U) [Mass/Vol] Trace Normal Trace, Negative [facility] Comment on above: Order Comment: Speci men Type: URINE SPECIMEN Ordering Facility: [facility] Address: [address] [place] [address] Performed By: #### 2 4356-8 #### [facility] CLIA [id number] [address] RBC LM.HPF (Urine sed) [#/Area] 0-3 /HPF Normal 0-3 /HPF [facility] Comment on above: Order Comment: Speci men Type: URINE SPECIMEN Ordering Facility: [facility] Address: [address] [place] [address] Performed By: #### 2 4356-8 #### [facility] CLIA [id number] [address] [place] Specific gravity (U) [Rel density] 1.035 High 1.005-1.030 [facility] Comment on above: Order Comment: Speci men Type: URINE SPECIMEN Ordering Facility: [facility] Address: [address] [address] Performed By: #### 2 4356-8 #### [facility] CLIA [id number] [address] Urobilinogen Ql (U) Normal Normal Negative [facility] Comment on above: Order Comment: Speci men Type: URINE SPECIMEN Ordering Facility: [facility] Address: [address] [address] Performed By: #### 2 4356-8 #### [facility] CLIA [id number] [address] WBC LM.HPF (Urine sed) [#/Area] 0-5 /HPF Normal 0-5 /HPF [facility] Comment on above: Order Comment: Speci men Type: URINE SPECIMEN Ordering Facility: [facility] Address: [address] [place] [address] Performed By: #### 2 4356-8 #### [facility] CLIA [id number] [address] Vital Signs Date Time Vital Sign Value Performing Clinician Tasia issa 03-08-2025 13:33-0400 Body height 175.26 cm Emilie Hanley APRN Work Phone: [facility] 03-08-2025 13:33-0400 Body mass index (BMI) [Ratio] 27 kg/m2 Emilie Hanley APRN Work Phone: [facility] 03-08-2025 13:33-0400 Body temperature 97.9 [degF] Emilie Hanley APRN Work Phone: [facility] 03-08-2025 13:33-0400 Body weight 83.06 kg Emilie Hanley APRN Work Phone: [facility] 03-08-2025 13:33-0400 Diastolic blood pressure 79 mm[Hg] Emilie Hanley APRN Work Phone: [facility] 03-08-2025 13:33-0400 Heart rate 59 /min Emilie Hanley APRN Work Phone: [facility] 03-08-2025 13:33-0400 Respiratory rate 16 /min Emilie Hanley APRN Work Phone: [facility] 03-08-2025 13:33-0400 SaO2% (BldA) [Mass fraction] 98 % Emliie Hanley APRN Work Phone: [facility] 03-08-2025 13:33-0400 Systolic blood pressure 139 mm[Hg] Emilie Hanley APRN Work Phone: [facility] Encounters Encounter Date Encounter Type Care Provider Facility Start: 03-08-2025 End: 03-08-2025 ambulatory NON STAFF [facility] Work Phone: Start: 03-08-2025 End: 03-08-2025 Patient encounter procedure Emilie Hanley APRN -[facility] Work Phone: Start: 02-03-2025 End: 02-03-2025 ambulatory Rosana Zaldivar [employer]SMISSION TESTER-C Work Phone: [facility] Work Phone: Start: 02-03-2025 End: 02-03-2025 Patient encounter procedure Rosana Zaldivar TRANSMISSION TESTER-C -[facility] Start: 02-03-2025 End: 02-03-2025 ambulatory Rosana Zaldivar TRANSMISSION TESTER Facility:[facility] Start: 12-11-2022 Emergency department patient visit Facility[facility] Date Payer Category Payer Self-pay 09-27-2022 Medicaid [id number] Unknown [id number] Unknown [facility] [id number] Social History Date Type Detail Facility Start: 08-29-2017 [facility] Start: 2000 Sex Assigned At Male W [facility] Start: 03-08-2025 Tobacco smoking stat [facility] Ex-smoker (finding) [facility] Sex Male (finding) [facility] Evaluation note Note Date & Type Note Facility Evaluation note No assessment information availa ble [facility] Work Phone: Evaluation note Note Date & Type Note Facility Evaluation note Diagnosis Onset Date Resolution Cough noneactive March 08 1:29pm [facility] Work Phone: Reason for referral (narrative) Note Date & Type Note Facility Reason for referral (narrative) No reason for referral information available [facility] Work Phone: Summary Purpose Family History Relationship Condition Age at Onset Recorded Date/T hunter father Hypertension Unknown Advance Directives Advance Directive Response Recorded Date/ Time Advance Directives No March 08 1:27pm Chief Complaint and Reason for Visit Chief Complaint Admit Date wheezing March 08, 2025 1:29 pm Reason for Visit Admit Date Cough March 08, 2025 1:29 pm Additional Source Comments (unrecognized sect ion and content) No Status Records FoundNo Status Records Found INFORMATION SOURCE (unrecogn ized section and content) DATE CREATED AUTHOR 12/15/2022 [facility] DATE CREATED AUTHOR AUTHOR'S ORGANIZ ATION 02/10/2025 [facility] Care Teams (unrecognized sec tion and content) Team Status: Active Member Role Status Dates Dr. Sourav Batista MD Family Provider Active Team Status: Inactive Member Role Status Dates Rosana Zaldivar NP, NP-C Attending Provider Active Start: February 03, 2025 End: February 03, 2025 Rosana Zaldivar NP, NP-C Referring Provider Active Start: February 03, 2025 End: February 03, 2025 Team Status: Active Member Role Status Dates NON STAFF Primary Care Provider Active Team Status: Inactive Member Role Status Dates Emilie Wasylik-Waldock , VP [employer] Attending Provider Active Start: March 08, 2025 End: March 08, 2025 NON STAFF Primary Care Provider Active Start: March 08, 2025 End: March 08, 2025 Goals (unrecognized section and content) Goals may be documented in a n alternate sectionGoals may be documented in an alternate section FOR RECORDS PERTAINING TO PATIENTS WHO ARE OR HAVE BEEN ENROLLED IN A CHEMICAL DEPENDENCY/SUBSTANCEABUSE PROGRAM, SOME INFORMATION MAY BE OMITTED. This clinical summary was aggregated from multiple sources. Caution should be exercised in using it in the provision of clinical care. This summary normalizes information from multiple sources, and as a consequence, information in this document may materially change the coding, format and clinical context of patient data. In addition, data may be omitted in some cases. CLINICAL DECISIONS SHOULD BE BASED ON THE PRIMARY CLINICAL RECORDS. [facility] [employer] provides no warranty or guarantee of the accuracy or completeness of information in this document.
--- NOTE | 2025-06-09 11:01 | CT_ITS ---
The [address] [address] Patient Name: SONALI LEMUS MRN: [id number] date: 2000 Sex: M Assigned Patient Location: ER Current Patient Location: Accession/Order Number: [id number] Exam Date: 06/09/2025 11:21 Report Date: 06/09/2025 11:43 At the request of: TERESO MUSE MD Procedure: CT head/brain wo con CT BRAIN WITHOUT CONTRAST: CLINICAL HISTORY: dizzy COMPARISON: None TECHNIQUE: Contiguous axial unenhanced images were obtained through the brain. This CT exam was performed using one or more following dose reduction techniques: Automated exposure control, adjustment of the mA and/or kV according to patient size, or use of iterative reconstruction technique. FINDINGS: The ventricles are normal in size and position. There are no areas of abnormal attenuation. There is no hemorrhage, mass effect or extra-axial collections. There could be borderline low-lying cerebellar tonsils. The imaged paranasal sinuses and mastoid air cells are clear. CT/CT head/brain wo con IMPRESSION: NO ACUTE INTRACRANIAL ABNORMALITY. Impression dictated by: Xenia Huntley M.D. 06/09/2025 11:43 AM Dictation Location: [place] [address] Electronically authenticated by: [id number] Y Date: 06/09/2025 11:43
--- NOTE | 2025-06-09 11:01 | ECG_ITS ---
[facility] Test Date: 2025-06-09 Pat Name: SONALI LEMUS Department: Room: - Gender: Male Tosser: : 2000 Requested By: [id number] Order Number: [id number] Reading MD: LINCOLN EASLEY M.D. Measurements Intervals [place] Rate: 53 P: 43 [place]: 122 QRS: 59 QRSD: 90 T: 29 QT: 402 QTc: 385 Interpretive Statements 1100 Sinus rhythm 1102 Sinus arrhythmia 9110 normal ECG No previous ECG available for comparison Electronically Signed On 06-09-2025 19:08:08 EDT by LINCOLN EASLEY M.D.
--- NOTE | 2025-06-09 11:02 | ED_ITS ---
HPI HPI - General Adult General Chief complaint: Recheck/Abnormal Lab/Rx Stated complaint: SOB LIGHTHEADED Time Seen by Provider: 06/09/25 10:57 Source: patient Mode of arrival: walk-in Limitations: no limitations History of Present Illness HPI narrative: 24-year-old male presented to the emergency department for episodes of dizziness and slow heart rate. He has not had syncope. This began 2 days ago and initially he thought it was because he came into contact with some liquid nitroglycerin. He came into contact with it with his hands. Occasionally he has been having these episodes where he feels like his heart rate slow and he gets a little bit dizzy. No fever or cough or chest pain or shortness of breath. Related Data Home Medications ?Medication ?Instructions ?Recorded ?Confirmed No Known Home Medications 06/09/2505/27 Allergies Allergy/AdvReac Type Severity Reaction Status Date / Time No Known Drug Allergies Allergy Verified 06/09/25 10:51 Review of Systems ROS Narrative A ten point review of systems is negative except as noted above. PFSH PFSH Social History Little interest or pleasure in doing things: not at all Feeling down, depressed, or hopeless: not at all Exam Narrative Exam Narrative: Nurses note and vital signs reviewed and patient is not hypoxic. General:The patient appears well and in no apparent distress.Patient is resting comfortably on cart. Skin:Warm, dry, no pallor noted.There is no rash noted. Head:Normocephalic, atraumatic Eye: Normal conjunctiva, no drainage Ears, Nose, Mouth, and Throat: oral mucosa is moist. Nares patent. Cardiovascular:Regular Rate and Rhythm Respiratory:Patient is in no distress, no accessory muscle use, lungs are clear to auscultation, no wheezing, rales or rhonchi Back:non-tender GI: Soft and nontender Musculoskeletal: The patient has no evidence of calf tenderness, no pitting edema, symmetrical pulses noted bilaterally Neurological:A&O x4, normal speech Psychiatric:Cooperative Constitutional Vital Signs, click to edit/add: Last Vital Signs Temp 98.0 F 06/09/25 10:47 Pulse 49 L 06/09/25 11:50 Resp 20 06/09/25 11:50 BP 131/82 06/09/25 11:47 Pulse Ox 98 06/09/25 11:21 O2 Del Method Room Air 06/09/25 11:21 Course Vital Signs Vital signs: Vital Signs Temperature 98.0 F 06/09/25 10:47 Pulse Rate 60 06/09/25 10:47 Respiratory Rate 14 06/09/25 10:47 Blood Pressure 152/100 H 06/09/25 10:47 Pulse Oximetry 99 06/09/25 10:47 Temperature 98.0 F 06/09/25 10:47 Pulse Rate 49 L 06/09/25 11:50 Respiratory Rate 20 06/09/25 11:50 Blood Pressure 131/82 06/09/25 11:47 Pulse Oximetry 98 06/09/25 11:21 Oxygen Delivery Method Room Air 06/09/25 11:21 Medical Decision Making MDM Narrative Medical decision making narrative: His workup is negative. The patient will have periods where his heart rate is in the low 50s, sometimes down to 49. He remains in sinus rhythm. He will be discharged home and referred to cardiology. Treatment diagnosis and follow-up were discussed with the patient. Differential Diagnosis Differential Diagnosis: Sinus bradycardia, heart block Lab Data Lab results reviewed: Yes I reviewed the patient's lab results Labs: Lab Results 06/09/25 Range/Units 11:18 WBC 6.5 (4.0-11.0) 10^3/uL RBC 5.18 (4.70-6.10) 10^6/uL Hgb 16.0 (14.0-18.0) g/dL Hct 45.3 (42.0-54.0) % MCV 87.5 (80.0-94.0) fL MCH 30.9 (25.9-34.0) pg MCHC 35.3 H (29.9-35.2) g/dL RDW 11.3 (11.0-15.0) % Plt Count 215 (150-450) 10^3/uL MPV 11.1 (9.5-13.5) fL Neut % (Auto) 49.2 (43.0-75.0) % Lymph % (Auto) 32.5 (20.5-60.0) % [place] % (Auto) 7.2 (1.7-12.0) % Eos % (Auto) 9.7 H (0.9-7.0) % Baso % (Auto) 0.8 (0.2-2.0) % Neut # (Auto) 3.2 (1.4-6.5) 10^3/uL Lymph # (Auto) 2.1 (1.2-3.8) 10^3/uL [place] # (Auto) 0.5 (0.3-0.8) 10^3/uL Eos # (Auto) 0.6 (0.0-0.7) 10^3/uL Baso # (Auto) 0.1 (0.0-0.1) 10^3/uL Abs Immat Gran (auto) 0.04 H (0.00-0.03) 10^3/uL Imm/Tot Granulo (auto) 0.6 H (0.0-0.5) % Sodium 145 (136-145) mmol/L Potassium 4.3 (3.5-5.1) mmol/L Chloride 107 (98-107) mmol/L Carbon Dioxide 28.7 (21.0-32.0) mmol/L Anion Gap 13.6 BUN 14.0 (7.0-18.0) mg/dL Creatinine 0.98 (0.70-1.30) mg/dL Est GFR ( Amer) >60 (>=60 mL/min/1.73m^2) Est GFR (Non-Af Amer) >60 (>=60 mL/min/1.73m^2) BUN/Creatinine Ratio 14.3 Glucose 97 (74-106) mg/dL Calcium 9.1 (8.5-10.1) mg/dL Troponin I High Sens <4.0 L (4.0-76.1) pg/mL Imaging Data Chest x-ray: My impression: No acute findings Radiologist's impression: ITS Impressions Head CT 06/09/25 11:01 IMPRESSION: NO ACUTE INTRACRANIAL ABNORMALITY. Impression dictated by: Xenia Huntley M.D. 06/09/2025 11:43 AM Dictation Location: [place] [address] Electronically authenticated by: [id number] Y Date: 06/09/2025 11:43 ECG Data Attestation: I personally reviewed and interpreted this ECG as follows: (EKG on my interpretation shows sinus rhythm with a rate of 53 and no acute change) Discharge Plan Discharge Chief Complaint: Recheck/Abnormal Lab/Rx Clinical Impression: Bradycardia Patient Disposition: Home, Self-Care Time of Disposition Decision: 12:21 Condition: Good Mode of Transportation: Private Vehicle Prescriptions / Home Meds: No Action No Known Home Medications Print Language: Azeri Instructions: Bradycardia (ED) Referrals: Verónica Trinh MD [Physician, Cardiology] - 1 week PhysicianNon-StaffMD [Primary Care Provider] - 1 week
[2025-06-09 11:26] LABS: Hematocrit 45.3 % (42.0-54.0); Hemoglobin 16.0 g/dL (14.0-18.0); Immature Granulocytes Abs Auto 0.04 10^3/uL (0.00-0.03); Immature Granulocytes Pct Auto 0.6 % (0.0-0.5); Lymphocytes Absolute Auto 2.1 10^3/uL (1.2-3.8); Mean Corpuscular HGB Conc 35.3 g/dL (29.9-35.2); Mean Corpuscular Hemoglobin 30.9 pg (25.9-34.0); Mean Corpuscular Volume 87.5 fL (80.0-94.0); Platelet Count 215 10^3/uL (150-450); Red Blood Count 5.18 10^6/uL (4.70-6.10); White Blood Count 6.5 10^3/uL (4.0-11.0)
[2025-06-09 11:41] LABS: Anion Gap 13.6; Blood Urea Nitrogen 14.0 mg/dL (7.0-18.0); Calcium 9.1 mg/dL (8.5-10.1); Carbon Dioxide 28.7 mmol/L (21.0-32.0); Chloride 107 mmol/L (98-107); Estimated GFR (African America >60 (>=60 mL/min/1.73m^2); Estimated GFR (Non-African Ame >60 (>=60 mL/min/1.73m^2); Glucose 97 mg/dL (74-106); Potassium 4.3 mmol/L (3.5-5.1); Sodium 145 mmol/L (136-145)
--- NOTE | 2025-06-09 11:42 | XR_ITS ---
The [place] [id number] Patient Name: SONALI LEMUS MRN: [id number] date: 2000 Sex: M Assigned Patient Location: ER Current Patient Location: ED.MAIN Accession/Order Number: [id number] Exam Date: 06/09/2025 12:05 Report Date: 06/09/2025 12:29 At the request of: TERESO MUSE MD Procedure: XR chest 1V Single view chest: CLINICAL HISTORY: SOB COMPARISON: None FINDINGS: The heart is normal in size. The lungs are clear. The pulmonary vasculature is normal. Mediastinum and hilar regions are unremarkable. No pleural effusions are seen. Visualized bones are intact. XR/XR chest 1V IMPRESSION: NO ACUTE PROCESS. Impression dictated by: Sonali Moura Jr., D.OMariel 06/09/2025 12:29 PM Dictation Location: [place] [address] Electronically authenticated by: [id number] Y Date: 06/09/2025 12:29
== END 2025-06-09 12:32 | disposition home or self-care (01) ==
PROVIDERS: Emergency Provider Emergency Medicine
DX: R00.1 Bradycardia, unspecified (principal)
CPT/HCPCS: 36415; 70450; 71045; 80048; 84484; 85025; 93005; 99285